=== PATIENT | female | born 1990 | race Caucasian/White ===

== ENCOUNTER 2017-03-18 20:14 | Inpatient (IN) | payer BC ==
[~2017-03-18] VITALS: Ht 172.7 cm; Wt 114.0 kg
--- NOTE | ~2017-03-18 | HP ---
ADMIT: 03/18/2017 RM/LOC: 422 [facility] MR#: [id number] [address] [facility] [address] [place] [phone] [address] V[address]TA [address] [place] [address] History and Physical SEX: F AGE: 26 : 1990 DATE OF SERVICE: CHIEF COMPLAINT: Migraine. HISTORY OF PRESENT ILLNESS: Daryl is a pleasant 26-year-old female, who presented to the Emergency Department with an acute episode or migraine headache. She generally gets her care in [place] and was admitted today as a [facility] patient. She and her mother report that she has had chronic migraines for several years. She says she gets a severe migraine about every six months. With these migraines, she does report an aura. She also gets very confused and disoriented with the pain. She has seen Neurology in [place] for this and was started on p.r.n. Treximet. She reports that the Treximet has not been helpful in aborting the headache. She did take one dose yesterday at the onset of the migraine without any relief. Therefore, she came to the Emergency Department for further evaluation. En route to the Emergency Department, she did have an episode of vomiting. She was otherwise in her usual state of health. When she was initially evaluated in the Emergency Department, she was found to have temperature 101.2. The patient denies any respiratory complaints. No urinary complaints. No rashes or known exposures. Full workup was performed in the Emergency Department for the source of the fever including a lumbar puncture. The source is yet to be identified. This morning, the patient reports significant improvement in her symptoms. She has no headache although mom reports she is still "not herself." She again denies any signs or symptoms of infection. PAST MEDICAL HISTORY: 1. Chronic migraines with aura. 2. History of orthopedic procedures to the left knee and ankle. MEDICATIONS: Treximet p.r.n. ALLERGIES: AZITHROMYCIN. SOCIAL HISTORY: The patient lives and works in [place]. She is a nurse at [employer]. She is a nonsmoker. FAMILY HISTORY: Unremarkable. REVIEW OF SYSTEMS: As per HPI, otherwise reviewed and negative. PHYSICAL EXAMINATION: VITAL SIGNS: Currently, temperature is 99.3, heart rate 131, respiratory rate 18, blood pressure 114/81, and oxygen saturation 99% on room air. GENERAL: The patient is awake, alert, no acute distress. She is pleasant and cooperative. She does repeat the answer to a question, but otherwise is oriented x3. HEENT: Within normal limits. ADMIT: 03/18/2017 RM/LOC: 422 [facility] MR#: [id number] [address] [id number] T[address]DARYL [address] [place] [address] History and Physical SEX: F AGE: 26 : 1990 HEART: Regular rate and rhythm. No murmurs. LUNGS: Clear to auscultation bilaterally. No crackles or wheezes. ABDOMEN: Obese, soft, nontender, and nondistended. Normal bowel sounds. EXTREMITIES: Warm and dry. No edema. NEUROLOGIC: Cranial nerves II through XII grossly intact. I do not appreciate any focal neurologic deficit. Unable to elicit DTRs however in the bilateral patellar reflexes. SKIN: No obvious rash or lesion. She does have two well-healed scars to the left anterior knee and the left lateral ankle. LABORATORY DATA: Please see electronic record for full details. Of note, her lumbar puncture showed clear colorless fluid with no red blood cells and 2 white blood cells. Glucose was within normal limits at 65 and total CSF protein of 34. Spinal fluid sent for culture. White blood cell count initially elevated at 13.0. This trended down to 12.7. Electrolytes and renal function were within normal limits including creatinine 0.8. Liver functions were also within normal limits. Urinalysis was remarkable only for hazy color, otherwise negative nitrite and negative leukocyte esterase. CRP mildly elevated at 1.33. Procalcitonin was less than 0.05 x 2. Influenza was negative. Enterovirus was found. HSV testing was drawn and is pending. Lyme disease is also pending. Rapid strep test was negative. IMAGING: Chest x-ray showed hypoventilation and could not exclude pneumonia, although was probably just vascular crowding. Telemetry shows sinus rhythm with occasional tachycardia up into the 130s. At rest, heart rate is in the 80s to 90s. ASSESSMENT AND PLAN: 1. Severe acute migraine with aura. This is improved this morning, however, given the severity and worsening of her symptoms, recommended imaging. We will get MRI, MRA today. We will continue to observe. If symptoms return, we will plan for transfer for neurology evaluation. However if symptoms continue to improve, we will plan to have her follow up with her neurologist as an outpatient. ADMIT: 03/18/2017 RM/LOC: 422 [facility] MR#: [id number] [address] [place] [phone] DARYL VILLALTA [address] [place] [address] History and Physical SEX: F AGE: 26 : 1990 2. Fever of unknown etiology. At this time, there is no obvious source and has actually resolved without antipyretics. She was initiated on vancomycin, Rocephin, and Zovirax in the Emergency Department. At this time, with improvement of symptoms and no signs of meningitis, we will discontinue antibiotics and continue to observe. Should fevers or any new symptoms return, we would plan to restart antimicrobials and consult Infectious Disease. DISPOSITION: We will continue to monitor the patient for the next 24 to 48 hours. If symptoms continue to improve and no other findings on the workup as well as no return of fever, we will plan for discharge with outpatient followup. Geno Esquivel MD/ jean marie JOB #: [id number] CC: Geno Esquivel, Attending Physician Geno Esquivel, Family Physician
--- NOTE | 2017-03-19 05:13 | ER ---
ADMIT: 03/18/2017 RM/LOC: 422 [facility] MR#: [id number] 2620 [facility] [address] [place] [phone] DARYL VILLALTA [facility] [place] [address] Emergency Room Report SEX: F AGE: 26 : 1990 DATE: 03/18/2017 CHIEF COMPLAINT: Headache. HISTORY OF PRESENT ILLNESS: The patient is a 26-year-old female with history of complex migraines with confusion, states approximately 8 hours prior to admission, developed headache with nausea and vomiting en route to emergency department. Denies any cough or urinary symptoms though the patient is so disoriented. History and review of systems are unreliable. Mother validates that she does get confusional migraines, but has not been aware that she has been urinating more than usual or coughing. Does not experience any travel or rash. 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 PAST MEDICAL HISTORY: ILLNESSES: Migraine headaches and acne. OPERATIONS: T and A. ALLERGIES: NONE. MEDICATIONS: Please see nurse's MAR. SOCIAL HISTORY: Nonsmoker and nondrinker. No illicit drugs. RN, works at [employer]. FAMILY HISTORY: Positive for migraines. REVIEW OF SYSTEMS: Unreliable due to delirium. PHYSICAL EXAMINATION: VITAL SIGNS: Temp 101.2, pulse 119, respirations 16, BP 142/87, SaO2 of 98% on room air, and weight 115 kilos. GENERAL: Toxic appearing, flushed complexion without rash or jaundice, icterus, or diaphoresis. HEENT: Normocephalic. No evidence of epistaxis, rhinorrhea, or otorrhea. No evidence of Rogers palsy either unilateral or bilateral. NECK: Supple without meningismus. No thyromegaly. CHEST: Clear. Breath sounds equal without rales, rhonchi, or wheeze. HEART: Tachycardic, regular without murmur, gallop, or edema. ABDOMEN: Soft, obese, nontender, and nondistended without mass or megaly. Bowel sounds active. BACK: No CVA tenderness. EXTREMITIES. No evidence of Homans sign, synovitis, or dermatitis. Negative Brudzinski or Kernig sign. NEURO: EOMI. PERRL. No evidence of drift, dysarthria, or ataxia. Alert, but disoriented. MEDICAL DECISION MAKING: The patient was given Tylenol 1 g p.o., Zofran, Toradol, DHE, and magnesium with improvement of headache, but confusion delirium persist. Spinal tap was discussed with family, who agreed to proceed. Accomplished left lateral decubitus position L4 interspace. ADMIT: 03/18/2017 RM/LOC: 422 [facility] MR#: [id number] [address] [place] [phone] DARYL VILLALTA [address] [place] [address] Emergency Room Report SEX: F AGE: 26 : 1990 Utilizing ultrasound for interspace marking accomplished without difficulty returning 8 mL of clear fluid. CSF fluid shows glucose 65, protein 34, 2 wbc's. Gram stain negative. CBC shows WBC 13.0, glucose 120, procalcitonin less than 0.05. Strep screen negative. Flu screen negative. CRP 1.33. Troponin less than 0.015. Lactic 2.0. INR 1.0. The patient was covered with vancomycin, ceftriaxone, and acyclovir. CSF study is pending for enterovirus, herpes, and West Nile virus. Serum for Lyme titer pending. Discussed findings with Dr. Esquivel, who agreed and gave orders to nursing staff. Due to the patient's presentation, findings, and intervention, 30 minutes of critical care is warranted. PROCEDURE: Diagnostic spinal tap. Left lateral decubitus position. Utilizing 25-gauge Sprotte needle with introducer and ultrasound guidance without difficulty returning 8 mL clear fluid. The patient tolerated procedure well. No neuro deficits postprocedure. DIAGNOSES: 1. Complex migraine with confusion. 2. Fever of unknown origin associated delirium. RECOMMENDATION: Admit inpatient telemetry isolation for Dr. Esquivel. ADMISSION/DISCHARGE CONDITION: Stable. The patient is a full code. Norris Alfaro MD/ jean marie JOB #: [id number] CC: Geno Esquivel MD, Attending Physician Geno Esquivel MD, Family Physician Geno Esquivel MD
[2017-03-21] MEDS ORDERED: VITAMIN D3400 UNIT PO (10:52)
[2017-03-21] MEDS ORDERED: ASA CHILDREN'S81 MG PO (10:52)
[2017-03-21] MEDS ORDERED: ACCUTANE PO (10:53)
[2017-03-21] MEDS ORDERED: TREXIMET 85-501 EACH PO (10:54)
--- NOTE | 2017-04-01 08:29 | DS ---
ADMIT: 03/18/2017 RM/LOC: 422 [facility] MR#: [id number] 2620 [facility] [address] [place] [phone] DARYL VILLALTA [address] [place] [address] Discharge Summary SEX: F AGE: 26 : 1990 ADMISSION DATE: 03/18/2017 DISCHARGE DATE: 03/20/2017 DISCHARGE DIAGNOSES: 1. Severe acute intractable migraine with aura. 2. Fever of unknown etiology. REASON FOR ADMISSION: The patient was admitted from the emergency department after presenting with headache and discovering fever in the emergency department. Please see H and P for full details. HOSPITAL COURSE: The patient was admitted to the medical-surgical floor for evaluation and treatment of her complaints. She presented initially with severe headache, nausea, vomiting, and confusion. The patient and mother reported this is consistent with her history of confusional migraines. However, on initial evaluation in the emergency department, she was found to have a fever of 101.2 Fahrenheit. Therefore, febrile workup was undertaken including a lumbar puncture. This did not show any signs of meningitis. Other laboratory studies were unremarkable. Viral studies including West Nile virus, HSV, as well as CSF cultures are pending and not yet final. By the morning following admission, the patient had significantly improved. She had no headache. Fever had resolved without any antipyretic. The ER had initiated vancomycin, Rocephin, and acyclovir. These were discontinued given normal laboratory findings and resolution of fever with no symptoms of infection. She was continued to be observed for 24 hours. She continued to remain headache-free. Confusion had resolved, and she was oriented x3. She remained afebrile for 24 hours without any antipyretics and off the antimicrobials. Given the worsening of her migraines, an MRI and MRA were obtained and showed no acute findings. On the morning of March 20, the patient was felt stable for discharge with outpatient followup. DISCHARGE MEDICATIONS: 1. Vitamin D daily. ADMIT: 03/18/2017 RM/LOC: 422 [facility] MR#: [id number] [address] [phone] DARYL VILLALTA [address] [place] [address] Discharge Summary SEX: F AGE: 26 : 1990 2. Accutane daily. 3. Aspirin 81 mg daily. 4. Treximet p.r.n. migraines. This is unchanged from her usual home medications. DISCHARGE INSTRUCTIONS: The patient was discharged to home in stable condition. She will follow up with her usual primary care provider in [place], [place], in the next 2 weeks. She will also follow up with her usual neurologist in [place] over the next 1 month to discuss if any daily prophylactic migraine treatment is necessary. She may continue with general diet and activity as tolerated. Routine headache and fever precautions were given. Geno Esquivel MD/ ajf JOB #: [id number] CC: Geno Esquivel MD, Attending Physician Geno Esquivel MD, Family Physician
== END 2017-03-20 09:24 | disposition home or self-care (01) | DRG 103 ==
LOC: ER 20:14 → 4PCU 22:30
PROVIDERS: ADMIT Family Medicine
PROC: 009U3ZX Drainage of Spinal Canal, Percutaneous Approach, Diagnostic (ICD-10-PCS; principal; 2017-03-19)
DX: G43.119 Migraine with aura, intractable, without status migrainosus (principal); F05 Delirium due to known physiological condition